=== PATIENT | male | born 1985 ===

== ENCOUNTER → 2018-02-06 | Outpatient (CLI) | payer OTHER ==
[~2018-02-06] MED LIST: HYDACE5 PO; IBUP800 PO; META800 PO; RXHYDACE PO
[2018-02-06 18:19] LABS: CHOL/HDL RATIO 4.8; Cholesterol 196 mg/dL (50-200); HDL Cholesterol 41 mg/dL (>39); LDL/HDL RATIO 2.3; Low Density Lipoprotein Chol 93 mg/dL (0-110); Triglycerides 311 mg/dL (30-140); Very Low Density Lipoprot Chol 62 mg/dL (6-28)
== END | disposition home or self-care (01) ==
LOC: LAB 16:40 → LAB SHORT 16:40
PROVIDERS: Physician Assistant Surgical
DX: Z00.00 Encounter for general adult medical examination without abnormal findings (principal)
CPT/HCPCS: 80061